=== PATIENT | male | born 1985 | race Two or more races ===

== ENCOUNTER 2021-10-01 16:14 | Emergency (ER) | payer SELFPAY ==
[~2021-10-01] VITALS: Ht 160 cm; Wt 65.8 kg
[2021-10-01 16:44] VITALS: BP 128/76
[2021-10-01] MEDS ORDERED: TDAP [DIPH/PERTUSSIS/TET] 0.5 ML VIAL IM ONE (17:22)
[2021-10-01] MEDS: TDAP [DIPH/PERTUSSIS/TET] 0.5 ML VIAL IM ONE (17:27)
[2021-10-01] MEDS ORDERED: BACI30OI9 TP (17:31)
[2021-10-01] MEDS ORDERED: IBUP-1955 PO (17:31)
--- NOTE | 2021-10-01 18:10 | NUR ---
Patient discharged to home in stable condition. Written and verbal after care instructions given. Patient verbalizes understanding of instruction.
== END 2021-10-01 18:10 | disposition home or self-care (01) ==
LOC: ER 16:18
DX: S61.412A Laceration without foreign body of left hand, initial encounter (principal); Y08.89XA Assault by other specified means, initial encounter; Y93.89 Activity, other specified; Y92.89 Other specified places as the place of occurrence of the external cause; Y99.8 Other external cause status
CPT/HCPCS: 72050; 73564; 90471; 90715; 99284; A6403